=== PATIENT | female | born 2000 ===

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

== ENCOUNTER → 2021-05-14 | Outpatient (REF) | payer OTHER | LOC: M LAB REF 13:02 | PROVIDERS: ATTEND Podiatrist Foot & Ankle Surgery | DX: B07.0 Plantar wart (principal) ==